=== PATIENT | male | born 1980 | race Caucasian/White ===

== ENCOUNTER 2018-05-22 10:28 | Emergency (ER) | payer SELFPAY ==
[2018-05-22] MEDS ORDERED: NA CHLORIDE 0.9% 1,000 ML ONE (11:02)
[2018-05-22] MEDS ORDERED: NITROGLYCERIN 0.4 MG/TAB SL ONE (11:02)
[2018-05-22] MEDS ORDERED: ASPIRIN 81 MG CHEWABLE TABLET ONE (11:02)
[2018-05-22 11:25] LABS: Absolute Lymphocytes (CBC) 2.4 K/uL (0.7-4.9); Absolute Monocytes 0.7 K/uL (0.1-1.3); Absolute Neutrophil 4.4 K/uL (1.8-8.0); Basophils % 0.3 % (0-1.3); Eosinophils % 1.4 % (0-4.4); Hematocrit 44.1 % (39.6-49.0); Lymphocytes % 31.2 % (15.3-44.8); MCH 31.6 pg (27.0-35.0); MCV 90.3 fL (80-100); MPV 8.9 fL (7.6-11.3); Monocytes % 9.2 % (3.3-12.3); RBC Red Blood Cell Count 4.88 M/uL (4.33-5.43)
--- NOTE | 2018-05-22 11:28 | RAD REPORT ---
EXAM DESCRIPTION: RAD - Chest Single View - 05/22/2018 11:24 am CLINICAL HISTORY: CHEST PAIN Chest pain. COMPARISON: No comparisons FINDINGS: Portable technique limits examination quality. The lungs are grossly clear. The heart is normal in size. No displaced fractures. IMPRESSION: No acute intrathoracic process suspected.
[2018-05-22 11:35] LABS: Protime INR 0.93
[2018-05-22 11:49] LABS: ALT/SGPT 55 U/L (12-78); AST/SGOT 31 U/L (15-37); Alkaline Phosphatase 74 U/L (45-117); BUN Blood Urea Nitrogen 16 mg/dL (7-18); Bicarbonate 31 mmol/L (21-32); Bilirubin Direct < 0.1 mg/dL (0-0.2); Bilirubin Total 0.4 mg/dL (0.2-1.0); CKMB Creatine Kinase MB 2.2 ng/mL (0.3-3.6); Creatine Phosphokinase 239 U/L (39-308); Glucose Level 88 mg/dL (74-106); Magnesium 2.5 mg/dL (1.8-2.4); NT PRO-BNP 18 pg/mL (<125); Potassium 3.7 mmol/L (3.5-5.1); Protein, Total 7.5 g/dL (6.4-8.2); Sodium Level 140 mmol/L (136-145)
--- NOTE | 2018-05-22 12:46 | EKG ---
Test Date: 2018-05-22 Test Time: 10:41:31 Phlebotomy Lab Assistant: ELIZABETH MEASUREMENT RESULTS: Intervals: Rate: 72 [place]: 134 QRSD: 88 QT: 388 QTc: 424 [place]: P: 17 NJ: 134 QRS: 31 T: 9 INTERPRETIVE STATEMENTS: Normal sinus rhythm Normal ECG No previous ECG available for comparison Electronically Signed On 05-22-18 12:45:53 CDT by Uche Reed
[2018-05-22 13:18] LABS: Urine Blood NEGATIVE (NEG); Urine Glucose NEGATIVE (NEG); Urine Protein NEGATIVE (NEG)
[2018-05-22] MEDS ORDERED: KETOROLAC 30 MG/ML INJ ONE (14:10)
[2018-05-22 14:36] LABS: CKMB Creatine Kinase MB 1.9 ng/mL (0.3-3.6)
--- NOTE | 2018-05-22 14:59 | ER ---
Nurse's Notes [facility] Name: Nicanor العراقي Age: 37 yrs Sex: Male : 1980 Arrival Date: 05/22/2018 Time: 10:31 Bed 20 Private MD: Out, [facility] Diagnosis: Chest pain, unspecified Presentation: 05/22 10:38 Presenting complaint: Patient states: midsternal and left sided chest pain that started sv about 1.5 hours ago while at work. c/o bilateral hand cramping and SOB at rest. Transition of care: patient was not received from another setting of care. Onset of symptoms was May 22, 2018 at 09:00. Initial Sepsis Screen: Does the patient meet any 2 criteria? No. Patient's initial sepsis screen is negative. Does the patient have a suspected source of infection? No. Patient's initial sepsis screen is negative. Care prior to arrival: None. 10:38 Method Of Arrival: Wheelchair sv 10:38 Acuity: DANNIELLE 3 sv 15:29 Risk Assessment: Do you want to hurt yourself or someone else? Patient reports no aj1 desire to harm self or others. Historical: - Allergies: 10:43 No Known Allergies; sv - Home Meds: 10:43 None [Active]; sv - PMHx: 10:43 None; sv - PSHx: 10:43 right hand; sv - Immunization history:: Adult Immunizations up to date. - Social history:: Smoking status: Patient uses tobacco products, vapes. - Ebola Screening: : No symptoms or risks identified at this time. Screenin:00 Abuse screen: Denies threats or abuse. Denies injuries from another. Nutritional aj1 screening: No deficits noted. Tuberculosis screening: No symptoms or risk factors identified. 15:29 Fall Risk None identified. aj1 Assessment: 11:00 General: Appears in no apparent distress. uncomfortable, Behavior is calm, cooperative, aj1 appropriate for age. Pain: Complains of pain in anterior aspect of left upper chest Pain does not radiate. Pain currently is 5 out of 10 on a pain scale. Quality of pain is described as pressure, Pain began 2 hours ago. Neuro: Level of Consciousness is awake, alert, obeys commands, Speech is normal. Cardiovascular: Reports chest pain, shortness of breath, Denies palpitations, Heart tones S1 S2 present Patient's skin is warm and dry. Rhythm is regular Chest pain is described as Pain is 5 out of 10 on a pain scale. quality is pressure, is located in left anterior chest wall. Respiratory: Reports shortness of breath Airway is patent Respiratory effort is even, unlabored, Respiratory pattern is regular, symmetrical, Breath sounds are clear bilaterally. Denies cough. GI: No signs and/or symptoms were reported involving the gastrointestinal system. : No signs and/or symptoms were reported regarding the genitourinary system. EENT: No signs and/or symptoms were reported regarding the EENT system. Derm: No signs and/or symptoms reported regarding the dermatologic system. Skin is pink, warm \T\ dry. normal. Musculoskeletal: No signs and/or symptoms reported regarding the musculoskeletal system. Circulation, motion, and sensation intact. 11:49 Reassessment: Patient appears in no apparent distress at this time. No changes from aj1 previously documented assessment. Patient and/or family updated on plan of care and expected duration. Pain level reassessed. Patient is alert, oriented x 3, equal unlabored respirations, skin warm/dry/pink. 11:49 Reassessment: Patient states his pain is the same as previous assessment. Patient was aj1 asked if he would like pain medication at this time. Patient declines. 12:46 Reassessment: Patient and/or family updated on plan of care and expected duration. Pain aj1 level reassessed. General: Appears in no apparent distress. uncomfortable, Behavior is calm, cooperative, appropriate for age. Neuro: Level of Consciousness is awake, alert, obeys commands, Speech is normal. Cardiovascular: Patient's skin is warm and dry. Cardiovascular: Patient's skin is warm and dry. Respiratory: Airway is patent Respiratory effort is even, unlabored, Respiratory pattern is regular, symmetrical. Derm: Skin is pink, warm \T\ dry. normal. Musculoskeletal: Circulation, motion, and sensation intact. 14:10 Reassessment: Patient appears in no apparent distress at this time. No changes from aj1 previously documented assessment. Patient and/or family updated on plan of care and expected duration. Pain level reassessed. Patient is alert, oriented x 3, equal unlabored respirations, skin warm/dry/pink. Patient state that he got tired of waiting so he took some Aleeve for his headache. Toradol held. 14:56 Reassessment: Patient and/or family updated on plan of care and expected duration. Pain aj1 level reassessed. General: Appears in no apparent distress. comfortable, Behavior is calm, cooperative, appropriate for age. Neuro: Level of Consciousness is awake, alert, obeys commands, Speech is normal. Cardiovascular: Patient's skin is warm and dry. Respiratory: Airway is patent Respiratory effort is even, unlabored, Respiratory pattern is regular, symmetrical. Derm: Skin is pink, warm \T\ dry. normal. 15:28 Reassessment: Patient appears in no apparent distress at this time. No changes from aj1 previously documented assessment. Patient and/or family updated on plan of care and expected duration. Pain level reassessed. Patient is alert, oriented x 3, equal unlabored respirations, skin warm/dry/pink. Vital Signs: 10:38 BP 141 / 81; Pulse 87; Resp 18; Pulse Ox 97% ; Weight 90.72 kg; Height 5 ft. 6 in. sv (167.64 cm); Pain 6/10; 11:50 BP 118 / 70; Pulse 66; Resp 14; Pulse Ox 98% on R/A; aj1 12:47 BP 124 / 78; Pulse 65; Resp 16; Pulse Ox 99% on R/A; aj1 14:11 BP 139 / 83; Pulse 82; Resp 18; Pulse Ox 99% ; aj1 14:57 BP 121 / 82; Pulse 72; Resp 16; Pulse Ox 100% on R/A; aj1 15:28 BP 127 / 65; Pulse 75; Resp 18; Pulse Ox 99% ; aj1 10:38 Body Mass Index 32.28 (90.72 kg, 167.64 cm) sv ED Course: 10:31 Patient arrived in ED. sb2 10:31 Out, of Town is Private Physician. sb2 10:38 Arm band placed on right wrist. Patient placed in an exam room, on a stretcher, on pulse oximetry. 10:43 Triage completed. sv 10:46 EKG done, by transfill technician. reviewed by David Wharton MD. at1 10:48 Jeovanny Lee PA is PHCP. cp 10:48 David Wharton MD is Attending Physician. cp 10:50 Initial lab(s) drawn, by mn, sent to lab. Inserted saline lock: 20 gauge in right mh5 antecubital area, using aseptic technique. Blood collected. 10:51 Patient has correct armband on for positive identification. Placed in gown. Bed in low mh5 position. Call light in reach. Side rails up X 1. Adult w/ patient. Warm blanket given. court monitor on. Pulse ox on. NIBP on. 10:56 Sadaf Cho, RN is Primary Nurse. aj1 11:00 No provider procedures requiring assistance completed. Patient maintains SpO2 aj1 saturation greater than 95% on room air. 11:02 Basic Metabolic Panel Sent. 5 11:02 [address] [facility] 11:[address] [facility] 11:[address] [facility] 11:[address] [facility] 11:[address] [facility] 11:03 NT PRO-BNP Sent. [facility] 11:03 PT-INR Sent. [facility] 11:03 Ptt, Activated Sent. [facility] 11:03 Troponin (emerg Dept Use Only) Sent. [facility] 11:24 XRAY Chest (1 view) In Process Unspecified. EDMS 13:55 Repeat lab(s) drawn. by mn, sent to lab. Flushed IV, discarded 6ml of blood before jp3 drawing repeat labs. 14:10 EKG done, by transfill technician. reviewed by Jeovanny CHACON. at1 14:58 Uche Reed MD is Referral Physician. cp 15:28 IV discontinued, intact, bleeding controlled, No redness/swelling at site. Pressure aj1 dressing applied. Administered Medications: 11:01 Drug: Nitroglycerin 0.4 mg Route: Sublingual; sv 14:58 Follow up: Response: No adverse reaction aj1 11:02 Drug: Aspirin Chewable Tablet 324 mg Route: PO; sv 14:58 Follow up: Response: No adverse reaction aj1 11:02 Drug: NS 0.9% 1000 ml Route: IV; Rate: 1 bolus; Site: right antecubital; sv 12:05 Follow up: IV Status: Completed infusion; IV Intake: 1000ml aj1 12:37 Not Given (Patient Refused): morphine 2 mg IVP once aj1 15:27 Not Given (Other Intervention Used): TORadol 30 mg IVP once aj1 Intake: 12:05 IV: 1000ml; Total: 1000ml. aj1 Outcome: 14:58 Discharge ordered by . cp 15:29 Discharged to home ambulatory. aj1 15:29 Condition: good 15:29 Discharge instructions given to patient, Instructed on discharge instructions, follow up and referral plans. medication usage, Demonstrated understanding of instructions, follow-up care, medications, Prescriptions given X 2. 15:29 Patient left the ED. aj1 Signatures: Dispatcher [employer] EDSadaf River RN RN aj1 Henny Rich RN RN Nola carlisle, supervisor throwing department EKG Tat1 Jeovanny Lee PA PA cp Martinez, Maria 5 Sugar Mendosa2 Matt Toribio jp3
--- NOTE | 2018-05-22 14:59 | EDPHYS ---
Physician Documentation [facility] Name: Nicanor العراقي Age: 37 yrs Sex: Male : 1980 Arrival Date: 05/22/2018 Time: 10:31 Bed 20 Private MD: Out, [facility] ED Physician David Wharton HPI: 05/22 10:56 This 37 yrs old Male presents to ER via Wheelchair with complaints of Chest cp Pain > 30 y/o. 10:56 The patient or guardian reports chest pain that is located primarily in the anterior cp chest wall, left. 10:56 The pain does not radiate. Associated signs and symptoms: Pertinent positives: cp shortness of breath, bilateral hand cramping. The chest pain is described as a pressure. Duration: The patient or guardian reports a single episode, that is still ongoing, started 1.5 hrs ago. Modifying factors: The symptoms are alleviated by nothing. Historical: - Allergies: 10:43 No Known Allergies; sv - Home Meds: 10:43 None [Active]; sv - PMHx: 10:43 None; sv - PSHx: 10:43 right hand; sv - Immunization history:: Adult Immunizations up to date. - Social history:: Smoking status: Patient uses tobacco products, vapes. - Ebola Screening: : No symptoms or risks identified at this time. ROS: 10:56 Eyes: Negative for injury, pain, redness, and discharge. cp 10:56 Constitutional: Negative for body aches, chills, fever, poor PO intake. 10:56 ENT: Negative for drainage from ear(s), ear pain, sore throat, difficulty swallowing, difficulty handling secretions. 10:56 Cardiovascular: Positive for chest pain, Negative for edema, palpitations. 10:56 Respiratory: Positive for shortness of breath, Negative for cough, wheezing. 10:56 Abdomen/GI: Negative for abdominal pain, vomiting, diarrhea, constipation, black/tarry stool, rectal bleeding. 10:56 Back: Negative for radiated pain. 10:56 : Negative for urinary symptoms. 10:56 MS/extremity: Positive for paresthesias, of the right hand and left hand, Negative for injury or acute deformity, decreased range of motion, deformity. 10:56 Skin: Negative for cellulitis, rash. 10:56 Neuro: Negative for altered mental status, dizziness, numbness, weakness. 10:56 All other systems are negative. Exam: 11:05 Constitutional: The patient appears in no acute distress, alert, awake, cp non-diaphoretic, non-toxic, well developed, well nourished, uncomfortable. 11:05 Head/Face: Normocephalic, atraumatic. Eyes: Pupils equal round and reactive to light, cp extra-ocular motions intact. Lids and lashes normal. Conjunctiva and sclera are non-icteric and not injected. Cornea within normal limits. Periorbital areas with no swelling, redness, or edema. ENT: Nares patent. No nasal discharge, no septal abnormalities noted. Tympanic membranes are normal and external auditory canals are clear. Oropharynx with no redness, swelling, or masses, exudates, or evidence of obstruction, uvula midline. Mucous membranes moist. Neck: Trachea midline, no thyromegaly or masses palpated, and no cervical lymphadenopathy. Supple, full range of motion without nuchal rigidity, or vertebral point tenderness. No Meningismus. 11:05 Chest/axilla: Inspection: normal, Palpation: is normal, no crepitus, no tenderness. 11:05 Cardiovascular: Rate: normal, Rhythm: regular, Pulses: Pulses are 2+ in right radial artery and left radial artery. Heart sounds: murmur, not appreciated, rub, not appreciated, gallop, not appreciated, Edema: is not appreciated, JVD: is not appreciated. 11:05 Respiratory: the patient does not display signs of respiratory distress, Respirations: normal, no use of accessory muscles, no retractions, no splinting, no tachypnea, labored breathing, is not present, Breath sounds: are clear throughout, no decreased breath sounds, no stridor, no wheezing. 11:05 Abdomen/GI: Inspection: abdomen appears normal, Bowel sounds: active, all quadrants, Palpation: abdomen is soft and non-tender, in all quadrants, rebound tenderness, is not appreciated, voluntary guarding, is not appreciated, involuntary guarding, is not appreciated. 11:05 Back: pain, is absent, ROM is normal. 11:05 Musculoskeletal/extremity: Exam is negative for calf tenderness, decreased range of motion, edema, injury. 11:05 Skin: cellulitis, is not appreciated, no rash present. 11:05 Neuro: Orientation: to person, place \T\ time. Mentation: lucid, able to follow commands, Cerebellar function: is grossly normal, Motor: moves all fours, strength is normal, Sensation: is normal. 14:19 ECG was reviewed by the Attending Physician. cp Vital Signs: 10:38 BP 141 / 81; Pulse 87; Resp 18; Pulse Ox 97% ; Weight 90.72 kg; Height 5 ft. 6 in. sv (167.64 cm); Pain 6/10; 11:50 BP 118 / 70; Pulse 66; Resp 14; Pulse Ox 98% on R/A; aj1 12:47 BP 124 / 78; Pulse 65; Resp 16; Pulse Ox 99% on R/A; aj1 14:11 BP 139 / 83; Pulse 82; Resp 18; Pulse Ox 99% ; aj1 14:57 BP 121 / 82; Pulse 72; Resp 16; Pulse Ox 100% on R/A; aj1 15:28 BP 127 / 65; Pulse 75; Resp 18; Pulse Ox 99% ; aj1 10:38 Body Mass Index 32.28 (90.72 kg, 167.64 cm) sv MDM: 10:49 Patient medically screened. cp 11:00 Differential diagnosis: abnormal EKG, acute myocardial infarction, acute pericarditis, cp chest wall pain, cholecystitis, Cholelithiasis costochondritis, esophagitis, gastritis, pancreatitis, peptic ulcer disease, pericarditis, pleurisy, pneumonia, pneumothorax, pulmonary embolus, stable angina, thoracic aortic disection, unstable angina. 14:55 HEART Score: History: Slightly Suspicious (0), ECG: Normal (0), Age: < or = 45 years cp (0), Risk Factors: 1 or 2 risk factors (1), [Active Smoker] Troponin: < or = 1 x Normal Limit (0). 14:55 Data reviewed: vital signs, nurses notes, lab test result(s), EKG, radiologic studies, cp CT scan, and as a result, I will discharge patient. 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 05/22 10:55 Order name: Basic Metabolic Panel; Complete Time: 12:13 cp 05/22 12:13 Interpretation: Normal except: GFR 68. cp 05/22 10:55 Order name: CBC with Diff; Complete Time: 12:13 cp 05/22 12:14 Interpretation: Reviewed. cp 05/22 10:55 Order name: Ckmb; Complete Time: 12:13 cp 05/22 10:55 Order name: CPK; Complete Time: 12:13 cp 05/22 10:55 Order name: LFT's; Complete Time: 12:13 cp 05/22 12:54 Interpretation: Reviewed. cp 05/22 10:55 Order name: Magnesium; Complete Time: 12:13 cp 05/22 12:13 Interpretation: Abnormal: MG 2.5. cp 05/22 10:55 Order name: NT PRO-BNP; Complete Time: 12:13 cp 05/22 12:54 Interpretation: Within normal limits: NT PRO-BNP 18. cp 05/22 10:55 Order name: PT-INR; Complete Time: 12:13 cp 05/22 10:55 Order name: Ptt, Activated; Complete Time: 12:13 cp 05/22 10:55 Order name: Troponin (emerg Dept Use Only); Complete Time: 12:13 cp 05/22 11:22 Order name: Urine Dipstick--Ancillary (enter results); Complete Time: 14:55 ss 05/22 13:40 Order name: Ckmb; Complete Time: 14:55 cp 05/22 13:40 Order name: Creatine Phosphokinase; Complete Time: 14:55 cp 05/22 13:40 Order name: Troponin (emerg Dept Use Only); Complete Time: 14:55 cp 05/22 10:41 Order name: EKG; Complete Time: 10:42 sv 05/22 10:41 Order name: EKG - Nurse/Tech; Complete Time: 10:55 sv 05/22 10:55 Order name: XRAY Chest (1 view); Complete Time: 12:13 cp 05/22 10:55 Order name: Cardiac monitoring; Complete Time: 10:57 cp 05/22 10:55 Order name: IV Saline Lock; Complete Time: 10:57 cp 05/22 10:55 Order name: Labs collected and sent; Complete Time: 10:57 cp 05/22 10:55 Order name: O2 Per Protocol; Complete Time: 10:57 cp 05/22 10:55 Order name: O2 Sat Monitoring; Complete Time: 11:13 cp 08 10:55 Order name: Urine Dipstick-Ancillary (obtain specimen); Complete Time: 11:21 cp 05/22 13:40 Order name: EKG - Nurse/Tech; Complete Time: 14:02 cp 05/22 13:40 Order name: EKG; Complete Time: 13:41 cp 05/22 13:40 Order name: Repeat Cardiac Enzymes at: repeat \T\1400; Complete Time: 14:03 cp EC:19 Rate is 62 beats/min. Rhythm is regular. LA interval is normal. QRS interval is normal. cp QT interval is normal. No ST changes noted. Interpreted by me. Reviewed by me. Administered Medications: 11:01 Drug: Nitroglycerin 0.4 mg Route: Sublingual; sv 14:58 Follow up: Response: No adverse reaction aj1 11:02 Drug: Aspirin Chewable Tablet 324 mg Route: PO; sv 14:58 Follow up: Response: No adverse reaction aj1 11:02 Drug: NS 0.9% 1000 ml Route: IV; Rate: 1 bolus; Site: right antecubital; sv 12:05 Follow up: IV Status: Completed infusion; IV Intake: 1000ml aj1 12:37 Not Given (Patient Refused): morphine 2 mg IVP once aj1 15:27 Not Given (Other Intervention Used): TORadol 30 mg IVP once aj1 Disposition: 15:40 Co-signature as Attending Physician, David Wharton MD I agree with the assessment and kdr plan of care. Disposition: 05/22/18 14:58 Discharged to Home. Impression: Chest pain, unspecified. - Condition is Stable. - Discharge Instructions: Nonspecific Chest Pain, Aspirin and Your Heart, Form - Return To Work. - Prescriptions for Ibuprofen 800 mg Oral Tablet - take 1 tablet by ORAL route every 8 hours As needed take with food; 30 tablet. Pepcid 20 mg Oral Tablet - take 1 tablet by ORAL route every 12 hours for 10 days; 20 tablet. - Medication Reconciliation Form, Thank You Letter, Antibiotic Education, Prescription Opioid Use form. - Follow up: Uche Reed MD; When: 1 - 2 days; Reason: Recheck today's complaints. - Problem is new. - Symptoms have improved. Signatures: Dispatcher [employer] EDSadaf River RN RN aj1 Henny Rich RN RN sv David Wharton MD MD kdr Page, Corey, PA PA cp Corrections: (The following items were deleted from the chart) 15:29 14:58 05/22/2018 14:58 Discharged to Home. Impression: Chest pain, unspecified. aj1 Condition is Stable. Forms are Medication Reconciliation Form, Thank You Letter, Antibiotic Education, Prescription Opioid Use. Follow up: Uche Reed; When: 1 - 2 days; Reason: Recheck today's complaints. Problem is new. Symptoms have improved. cp
--- NOTE | 2018-05-22 16:52 | EKG ---
Test Date: 2018-05-22 Test Time: 14:02:36 Manufacturing Area Manager: GILMA MEASUREMENT RESULTS: Intervals: Rate: 62 VT: 138 QRSD: 90 QT: 414 QTc: 420 [place]: P: 14 VT: 138 QRS: 38 T: 12 INTERPRETIVE STATEMENTS: Normal sinus rhythm Normal ECG Compared to ECG 05/22/2018 10:41:31 No significant changes Electronically Signed On 05-22-18 16:51:51 CDT by Uche Reed
== END 2018-05-22 15:29 | disposition home or self-care (01) ==
LOC: ER 10:28
DX: R07.9 Chest pain, unspecified (principal); F17.290 Nicotine dependence, other tobacco product, uncomplicated
CPT/HCPCS: 36415; 71045; 80048; 80076; 81003; 82550; 82553; 83735; 83880; 84484; 85025; 85610; 85730; 93005; 96360; 99285; J7030